=== PATIENT | male | born 1950 | race Caucasian/White ===

== ENCOUNTER 2025-02-13 07:00 | Outpatient (CLI) | payer MEDICARE, SELFPAY ==
--- NOTE | ~2025-02-13 | XR_ITS ---
Right ankle Technique: AP, oblique, and lateral views were obtained. Clinical History: Pain Findings: No acute fracture or dislocation is seen. Chronic fracture fragment present at the tip of t he medial malleolus. Osseous alignment is anatomic. Ankle mortise and other visualized joint spaces a re preserved. 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 Soft t issues are otherwise unremarkable. Impression: No acute abnormality. Probable chronic posttraumatic changes including chronic fracture fragment of the tip of the medial m alleolus and heterotopic ossification at the distal tibia fibular syndesmosis. Reviewed, dictated and finalized at location . Impression: No acute abnormality. Probable chronic posttraumatic changes including chronic fracture fragment of t he tip of the medial malleolus and heterotopic ossification at the distal tibia fibular syndesmosis.
--- OUTSIDE RECORDS SUMMARY | 2025-02-13 07:06 | XMS_ITS | Clinical Summary ---
Author Organization [facility] [employer] Address [address] [place] [address] Care Team Providers Care Patrol Community Service Officer Name Role Phone Unavailable Primary Care Provider Unavailabl e Source Comments [facility],non-owned Affiliates and Associated Physician Practices is amultiple site organization consisting of ambulatory clinics and hospital sitesin [place], [place], [place] and [place]. This disclosure is being madepursuant to the Care Everywhere program and may not contain all information available regarding this patient. Last updated 18.[facility] Allergies Active Allergy Reactions Criticality Noted Date Comments Soap Rash 09/06/2009 IVORY SOAP And Malt elixir Medications * Be aware that medications may not be up to date on this document. Alwaysverify current medications with the patient. MULTIPLE VITAMINS PO Take by mouth daily. Active aspirin 325 MG tablet Take 325 mg by mouth daily. STOPPED 2 WEEKS AGO Active omeprazole (PRILOSEC) 20 MG capsule Take 20 mg by mouth daily before breakfast. Take am of surgery Active hydrocodone-melanie taminophen (VICODIN) 5-500 MG tablet Take 1-2 Tabs by mouth every 6 hours as needed for Pain. 40 0 09/09/2009 Active hydrocodone-melanie taminophen (VICODIN) 5-500 MG tablet Take 1-2 Tabs by mouth every 6 hours as needed for Pain. 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 Gender Identity Not on file Sexual Orientation Not on file Last Filed Vital Signs Vital Sign Reading Time Taken Comments Blood Pressure 127/86 09/10/2009 10:49 AM JEWELRY MANAGER Pulse 72 09/10/2009 10:49 AM JEWELRY MANAGER Temperature 36.5 C (97.7 F) 09/10/2009 10:49 AM JEWELRY MANAGER Respiratory Rate 18 09/10/2009 10:49 AM JEWELRY MANAGER Oxygen Saturation 95% 09/10/2009 10:49 AM JEWELRY MANAGER Inhaled Oxygen Concentration - - Weight 104.3 kg (229 lb 15 oz) 09/09/2009 6:30 A M JEWELRY MANAGER Height 182.9 cm (6') 09/09/2009 6:30 AM JEWELRY MANAGER Body Mass Index 31.19 09/09/2009 6:30 AM JEWELRY MANAGER Plan of Treatment Health Maintenance Due Date Last Done Comments COLOGUARD (AGES 45-75) - COL ON CA SCREENING 1952 COLON MONITORING 1952 COLONOSCOPY - COLON CA SCREENING 1952 CT COLONOGRAPHY - COLON CA SCREENING 1952 Colorectal Cancer Screening 1952 FIT - COLON CA SCREENING 1952 FLEX SIG - COLON CA SCREENING 1952 LIPID TESTING 1952 HEPATITIS C SCREENING 08/23/1970 DTAP/TDAP/TD VACCINES (1 - Tdap) 1971 PNEUMOCOCCAL VACCINE 50+ (1 of 1 - PCV) 2002 ZOSTER VACCINE (1 of 2) 2002 COVID-19 VACCINE ( - 2023-2 5 season) 2024 DEPRESSION SCREENING 08/02/2024 INFLUENZA VACCINE (#1) 2025 Respiratory Syncytial Virus (RSV) Vaccine Pt: or over 60 yrs (1 - 1-dose 75+ series) 2027 HEPATITIS B VACCINE Aged Out No longe r eligible based on patient's age to complete this topic HIB VACCINE Aged Out No longer eligi ble based on patient's age to complete this topic HPV VACCINE Aged Out No longer eligi ble based on patient's age to complete this topic MENINGOCOCCAL (Group B) VACC INE SHARED DECISION-MAKING Aged Out No longer eligibl e based on patient's age to complete this topic MENINGOCOCCAL GROUPS A/C/Y/W VACCINE Aged Out No longer eligible b ased on patient's age to complete this topic Advance Directives * Full Code (Latest Code Status on File) Date Activated Date Inactivated Comments 09/09/2009 11:37 AM 09/11/2009 4:27 AM
--- OUTSIDE RECORDS SUMMARY | 2025-02-13 07:06 | XMS_ITS | Clinical Summary ---
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 Gender Identity Not on file Sexual Orientation Not on file Plan of Treatment Health Maintenance Due Date Last Done Comments Hepatitis C Virus (HCV) Screening 1950 TdaP Immunization 1952 Colonoscopy 1997 Colorectal Cancer Screening 1997 Cologuard 2002 Immunochemical Fecal Occult Blood 2002 Pneumococcal Immunization (5 0+ years) (1 of 1 - PCV) 2002 Zoster Immunization (1 of 2) 2002 Influenza Immunization (#1) 04/02/202407/02, 06/21/2014, 06/22/2013 SARS-COV-2 Immunization ( - 2023- season) 2024 Respiratory Syncytial Virus (RSV) Immunization (Adult) (1 - 1-dose 75+ series) 2027 Hepatitis B Immunization Aged Out No longer eligible based on patient's age to complete this topic Meningococcal Immunization (ACWY) Aged Out No longer eligible b ased on patient's age to complete this topic Rotavirus Immunization Aged Out No lo nger eligible based on patient's age to complete this topic
--- OUTSIDE RECORDS SUMMARY | 2025-02-13 07:06 | XMS_ITS | Encounter Summary ---
Author Organization [facility] Address 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
--- OUTSIDE RECORDS SUMMARY | 2025-02-13 07:06 | XMS_ITS | Clinical Summary ---
Author Organization [facility] Address [address] [place] [address] Phone Care Team Providers Care Frame Gate Mortiser Operator Name Role Phone Luis Angel Brambila MD Primary Care Provider [phone] Allergies Active Allergy Reactions Criticality Noted Date Comments Soap Rash Low 09/06/2009 Medications omeprazole (PriLOSEC) 20 mg Capsule, Delayed Release(E.C.) Take 20 mg by mouth. Active aspirin (DEVON) 325 mg tablet Take 325 mg by mouth. Active MULTIVITAMIN ORAL Take by mouth. Active triamcinolone acetonide (KENALOG) 0.1 % Cream Apply to affected area 2 times daily. 15 Gram 1 08/23/2017 Active Active Problems No known active problems Encounters Date Type Department Care Team Description 12/13/2024 Abstract [facility]ology [address] [facility] [address] [place] [address] Heath Grullon RMA from Last 3 Months Family History Medical History Relation Name Comments Colon Cancer Neg Hx Social History Tobacco Use Types Packs/Day Years Used Date Smoking Tobacco: Never Smokeless Tobacco: Never Alcohol Use Standard Drinks/Week Comments Yes 0 (1 standard drink = 0.6 oz pur e alcohol) 3x a week Sex and Gender Information Value Date Recorded Sex Assigned at Not on file Legal Sex Male 3:07 AM BAG MENDER Gender Identity Not on file Sexual Orientation Not on file Last Filed Vital Signs Vital Sign Reading Time Taken Comments Blood Pressure 110/80 09/20/2017 12:49 PM BAG MENDER Pulse 81 09/20/2017 11:34 AM BAG MENDER Temperature 36.4 C (97.5 F) 09/20/2017 12:27 PM BAG MENDER Respiratory Rate 18 09/20/2017 12:49 PM BAG MENDER Oxygen Saturation 96% 09/20/2017 12:49 PM BAG MENDER Inhaled Oxygen Concentration - - Weight 102.1 kg (225 lb) 01/30/2025 9:09 AM CDT Height 180.3 cm (5' 11) 01/30/2025 9:09 AM CDT Body Mass Index 31.38 01/30/2025 9:09 AM CDT Plan of Treatment Health Maintenance Due Date Last Done Comments DTAP/TDAP/TD VACCINES (1 - Tdap) 1971 FIT-DNA Q 3 years 1997 FIT/FOBT Q 1 year 1997 Flex Sig/CT Colonography Q 5 years 1997 PNEUMOCOCCAL VACCINE 50+ YEARS (1 of 1 - PCV) 08/27/19 03 ZOSTER VACCINE (1 of 2) 2002 INFLUENZA VACCINE (#1) 2025 RSV VACCINE (60+ or ) (1 - 1-dose 75+ series) 2027 COLORECTAL SCREENING 09/20/2027 09/20/2017 Colorectal Cancer Screening 09/20/2027 Insurance Advance Directives For more information, please contact: [phone] * Full Code (Latest Code Status on File) Date Activated Date Inactivated Comments 09/20/2017 11:29 AM 09/20/2017 3:05 PM Care Teams Frame Gate Mortiser Operator Relationship Specialty Start Date End Date Luis Angel Brambila MD [address] [facility] [address] [place] [address] PCP - General Internal Medicine 12/13/24
== END 2025-02-13 07:01 | disposition home or self-care (01) ==
PROVIDERS: PCP Internal Medicine; Visit Provider Internal Medicine
DX: M25.571 Pain in right ankle and joints of right foot (principal)
CPT/HCPCS: 73610; 73630

== ENCOUNTER 2025-03-14 10:54 | Outpatient (CLI) | payer MEDICARE, SELFPAY ==
--- OUTSIDE RECORDS SUMMARY | 2025-03-14 11:04 | XMS_ITS | Encounter Summary ---
Author Organization [facility] Address 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 [address] [place] [id number] PCP - General Internal Medicine 12/13/24 documented as of this encounter
--- OUTSIDE RECORDS SUMMARY | 2025-03-14 11:04 | XMS_ITS | Clinical Summary ---
Author Organization [facility] Address [address] [place] [address] Phone Care Team Providers Care Upper Extremity Surgeon Name Role Phone Luis Angel Brambial MD Primary Care Provider [phone] Allergies Active Allergy Reactions Criticality Noted Date [...] Type Department Care Team Description 12/13/2024 Abstract [facility]ology [place] [address] [facility] [address] [place] [address] Heath Grullon RMA from Last [...] on file Legal Sex Male 3:07 AM CLINICAL SPECIALIST VASCULAR Gender Identity Not on file Sexual Orientation Not on file Last Filed Vital Signs Vital Sign Reading Time Taken Comments Blood Pressure 110/80 09/20/2017 12:49 PM CLINICAL SPECIALIST VASCULAR Pulse 81 09/20/2017 11:34 AM CLINICAL SPECIALIST VASCULAR Temperature 36.4 C (97.5 F) 09/20/2017 12:27 PM CLINICAL SPECIALIST VASCULAR Respiratory Rate 18 09/20/2017 12:49 PM CLINICAL SPECIALIST VASCULAR Oxygen Saturation 96% 09/20/2017 12:49 PM CLINICAL SPECIALIST VASCULAR Inhaled Oxygen Concentration - - Weight 102.1 [...] Advance Directives For more information, please contact: [phone] * Full Code (Latest Code Status on File) Date Activated Date Inactivated Comments 09/20/2017 11:29 AM 09/20/2017 3:05 PM Care Teams Upper Extremity Surgeon Relationship Specialty Start Date End Date Luis Angel Brambila MD [address] [facility] [address] [place] [address] PCP - General Internal Medicine 12/13/24
--- OUTSIDE RECORDS SUMMARY | 2025-03-14 11:04 | XMS_ITS | Clinical Summary ---
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 Gender Identity Not on file Sexual Orientation Not on file Plan of Treatment Health Maintenance Due Date Last Done Comments Hepatitis C Virus (HCV) Screening 1950 TdaP Immunization 1952 Cologuard 1997 Colonoscopy 1997 Colorectal Cancer Screening 1997 Immunochemical Fecal Occult Blood 1997 Pneumococcal Immunization (5 0+ years) (1 of 1 - PCV) 2002 Zoster Immunization (1 of 2) 2002 SARS-COV-2 Immunization (1 - 2023- season) 2024 Influenza Immunization (#1) 04/02/202507/02, 06/21/2014, 06/22/2013 Respiratory Syncytial Virus (RSV) Immunization (Adult) (1 - 1-dose 75+ series) 2027 Hepatitis B Immunization Aged Out No longer eligible based on patient's age to complete this topic Human Papillomavirus (HPV) Immunization Aged Out No longer eligible b ased on patient's age to complete this topic Meningococcal Immunization (ACWY) Aged Out No longer eligible b ased on patient's age to complete this topic Rotavirus Immunization Aged Out No lo nger eligible based on patient's age to complete this topic
--- OUTSIDE RECORDS SUMMARY | 2025-03-14 11:04 | XMS_ITS | Continuity of Care Document ---
Author Organization [facility] Address [address] [place] [address] Phone Care Team Providers Care Dog Food Dough Mixer Name Role Phone Ap Lawler MD Unavailable Unavailable Allergies, Adverse Reactions, Alerts Substance Reaction Status Criticality Sulfa (Sulfonamide Antibiotics) Rash Active No Information Medications Medication Instructions Dosage Effective Dates (start - stop) Status Comments [place] 5 mg-325 mg tablet take 1 tablet by oral route every 6 hours as needed for pain - Active Procedures Procedure Date RADEX BEAU COMPL MINIMUM 2 VIEWS 019 OFFICE/OUTPATIENT VISIT EST OFFICE/OUTPATIENT VISIT EST OFFICE/OUTPATIENT VISIT EST POSTOP FOLLOW-UP VISIT POSTOP FOLLOW-UP VISIT POSTOP FOLLOW-UP VISIT RADEX BEAU COMPL MINIMUM 2 VIEWS 018 OFFICE/OUTPATIENT VISIT NEW Advance Directives Directive Yes / No Effective Date File Name Other Directive No N/A N/A WARNING:The information contained in this section is historical and is provided for information only and does not constitute a legal document or any assurance that the information is still accurate. Please verify the information with the villarreal of the legal document before using it for clinical purposes. Encounters Encounter Description Practice Location Reason(s) For Visit Diagnoses Date Provider Providers Copied on Encounter OFFICE/OUTPA TIENT VISIT EST [facility], [address], [place], [address], [place] tel:[phone] [facility] Left shoulder pain, unspecified chronicityBody mass index (BMI) 32.0-32.9, adultSubacromi al bursitis of left shoulder joint 9 Bucky De Souza. [address], [place], [place], [address]. tel:[phone] OFFICE/OUTPA TIENT VISIT EST [facility], [address] [address], [place], [address], [place] tel:[phone] [facility] S/P rotator cuff repair 8 Breanna Plasencia. [address] , [place], [place], [id number]. tel:[phone] OFFICE/OUTPA TIENT VISIT EST [facility], [address] [address], [place], [address], [place] tel:[phone] [facility] S/P rotator cuff repair 8 Breanna Plasencia. [address] [facility] [address] , [place], [place], [address]. tel:[phone] Referring Provider: Luis Angel Stone, [address] [place], [place], [facility]. tel:[phone] [facility], [address] [address], [place], [address], [place] tel:[phone] [facility] S/P rotator cuff repair 8 Boxdorfer Fanny. [address] [facility], [place], [place], [address]. tel:[phone] [facility], [address] [address], [place], [address], [place] tel:[phone] [facility] S/P rotator cuff repair [address] Fanny. [address] [facility] [address] [facility], [place], [place], [address]. tel:[phone] [facility], [address] [address], [place], [address], [place] tel:[phone] [facility] Tear of right rotator cuff, unspecified tear extentS/P rotator cuff repair 8 [address] Fanny. [address] [address], [place], [place], [address]. tel:[phone] [facility], [address], [address], [place] tel:[phone] [facility] Tear of right rotator cuff, unspecified tear extentPrimary osteoarthritis , right shoulder 8 [address] Fanny. [address] [address], [place], [place], [address]. tel:[phone] [facility], [address], [address], [place] tel:[phone] [facility] No Information [address] Luis Angel. [address] [place], [place], [address]. tel:[phone] [facility], [address], [address], [place] tel:[phone] [facility] Tear of right rotator cuff, unspecified tear extentPrimary osteoarthritis , right shoulder 8 [address] Fanny. [address] [address], [place], [place], [address]. tel:[phone] [facility], [address], [address], [place] tel:[phone] [facility] Tear of right rotator cuff, unspecified tear extent [address] Luis Angel. [address] [place], [place], [address]. tel:[phone] OFFICE/OUTPA TIENT VISIT NEW [facility], [address] [address], [place], [address], [place] tel:[phone] [facility] Right shoulder pain, unspecified chronicityTear of right rotator cuff, unspecified tear extentPrimary osteoarthritis , right shoulder Fe- 8 Breanna Plasencia. [address], [place], [place], [address]. tel:[phone] Referring Provider: Melchor Daniels, [address], [place], [address] . tel:[phone] Family History Family Member Type Diagnosis Age At Onset Father Problem (finding) hypertension Mother Problem (finding) malignant neoplasm of l iver Brother Problem (finding) Diabetes mellitus Immunizations Vaccine Date Status Comments Pneumo (2 yrs or older)(PPV) administered Source: Source Unspecified Payers Payer name Insurance type Covered green party ID Authoriza tion(s) No Information Social History Type Description Quantity Date Captured Comments Alcohol Use Details No Caffeine Use Details Unknown Tobacco Use Status Never smoked tobacco 2018 Smoking Status Never smoker Non-Smoking Tobacco Use Details : No Details Available : No Details Available Sex Male Vital Signs Date / Time: Height Weight BMI Pulse Rate Blood Pressure Temperature Respiratory Rate Body Surface Area Head Circumference Head Circ. Percentile Wt./Isaias. Percentile BMI percentile Pulse Ox Inhaled Ox 1:46 PM 72.00 in 107.955 kg (238.00 lbs) 32.2 8 kg/m eter (2) 160/100 mm[Hg] Chief Complaint And Reason For Visit No Information Reason For Referral Reason For Referral No Information Plan Of Treatment Date Type Action Status Referral Ordered: RADEX BEAU COMPL MINIMUM 2 VIEWS LT shoulder ordered Referral Ordered: RADEX BEAU COMPL MINIMUM 2 VIEWS RT ordered History Of Present Illness Encounter Date Complaint History Of Prese nt Illness No Information Functional Status Date Functional Assessmen t No Information Instructions Date Instruction Additional Infor mation Fall risk home exerc ise program handout provided Giving encouragement to exercise Related to Body mass index (BMI) 32.0-32.9, adult Inform physician of any changes in symptoms or pain. Related to S/P rotator cuff repair Inform physician of any changes in symptoms or pain. Related to S/P rotator cuff repair Inform physician of any changes in symptoms or pain. Related to S/P rotator cuff repair Apply moist heat or cold 20 min per hour. Related to Primary osteoarthritis, right shoulder Assessments Type Assessment Date assessment Left shoulder pain, unspecified chronicity assessment Body mass index (BMI) 32.0-32.9, adult assessment Subacromial bursitis of left beau ulder joint Patient Care Teams Name Effective Dates (start - stop) Status Members No Information
--- OUTSIDE RECORDS SUMMARY | 2025-03-14 11:04 | XMS_ITS | Clinical Summary ---
Author Organization [facility] Address [address] [place] [address] Care Team Providers Care Bar Pointer Name Role Phone Unavailable Primary Care Provider Unavailabl e Source Comments [facility],non-owned Affiliates and Associated Physician Practices is amultiple site organization consisting of ambulatory clinics and hospital sitesin [place], [place], [place] and [place]. This disclosure is being madepursuant to the Care Everywhere program and may not contain all information available regarding this patient. 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[place] MARSHAL Gender Identity Not on file Sexual Orientation Not on file Last Filed Vital Signs Vital Sign Reading Time Taken Comments Blood Pressure 127/86 09/10/2009 10:49 AM DEPUTY [place] Pulse 72 09/10/2009 10:49 AM DEPUTY [place] MAR[place] Temperature 36.5 C (97.7 F) 09/10/2009 10:49 AM DEPUTY [place] MAR[place] Respiratory Rate 18 09/10/2009 10:49 AM DEPUTY [place] MAR[place] Oxygen Saturation 95% 09/10/2009 10:49 AM DEPUTY [place] MARSH[place] Inhaled Oxygen Concentration - - Weight 104.3 kg (229 lb 15 oz) 09/09/2009 6:30 A M DEPUTY [place] MARSH[place] Height 182.9 cm (6') 09/09/2009 6:30 AM DEPUTY [place] MAR[place] Body Mass Index 31.19 09/09/2009 6:30 AM DEPUTY [place] MAR[place] Plan of Treatment Health Maintenance Due Date [...]
[2025-03-14 12:03] LABS: Influenza A QL RT-PCR Negative (Negative); Influenza B QL RT-PCR Negative (Negative); SARS-CoV-2 RNA PCR Negative (Negative)
== END 2025-03-14 10:55 | disposition home or self-care (01) ==
PROVIDERS: PCP Internal Medicine; Visit Provider Internal Medicine
DX: R50.9 Fever, unspecified (principal)
CPT/HCPCS: 87636